=== PATIENT | male | born 1960 | race Caucasian/White ===

== ENCOUNTER 2020-01-18 09:41 | Emergency (ER) | payer SELFPAY ==
--- NOTE | 2020-01-18 11:05 | ER Document Report ---
ED Medical Screen (RME) - General Chief Complaint: Elbow Injury Stated Complaint: RIGHT ELBOW PAIN,SWELLING Time Seen by Provider: 01/18/20 10:58 Mode of Arrival: Ambulatory Information source: Patient Notes: 59-year-old male presented to ED for right elbow pain. He states a month ago he hit his elbow on something it hurt really bad for about a week and then it got better and then started swelling now he has a large right elbow effusion with pain. He states he cannot bend his elbow freely but this is painful. He states he does have a history of kidney cancer with left kidney removed about 20 years ago. He smokes 3/4 pack a day and rarely drinks. - HPI Onset: Other Onset/Duration: Intermittent - Month ago Quality of pain: Sharp Severity: Moderate Pain Level: 3 Associated Symptoms: Other - Right elbow effusion Exacerbated by: Movement Relieved by: Denies Similar symptoms previously: Yes Recently seen / treated by doctor: No - Related Data Smoking: Cigarettes - 3/4 pack/day Frequency of alcohol use: Rare Drug Abuse: None Allergies/Adverse Reactions: No Known Allergies Allergy (Verified 01/18/20 11:00) Past Medical History - General Information source: Patient - Social History Cigarette use (# per day): Yes Frequency of alcohol use: Rare Drug Abuse: None Lives with: Family Family history: Reviewed & Not Pertinent - Past Medical History Cardiac Medical History: Reports: None Pulmonary Medical History: Reports: None EENT Medical History: Reports: None Neurological Medical History: Reports: None Endocrine Medical History: Reports: None Renal/ Medical History: Reports: Other - Kidney cancer Malignancy Medical History: Reports Hx Renal (Kidney) Cancer GI Medical History: Reports: None Musculoskeltal Medical History: Reports None Skin Medical History: Reports None Psychiatric Medical History: Reports: None Traumatic Medical History: Reports: None Infectious Medical History: Reports: None Past Surgical History: Reports: Hx Kidney (Renal Surgery) - Remove left kidney Physical Exam - Vital signs Vitals: Temp Pulse Resp BP Pulse Ox 97.8 F 99 16 112/80 96 01/18/20 09:49 01/18/20 09:49 01/18/20 09:49 01/18/20 09:49 01/18/20 09:49 Course - Vital Signs Vital signs: Temp Pulse Resp BP Pulse Ox 98.1 F 75 17 122/72 98 01/18/20 15:37 01/18/20 15:37 01/18/20 15:37 01/18/20 15:37 01/18/20 15:37 Doctor's Discharge - Discharge Clinical Impression: Olecranon bursitis of right elbow Condition: Stable Disposition: HOME, SELF-CARE Additional Instructions: Bursitis You have been diagnosed as having bursitis. Bursitis is an inflammation of a fluid pouch (bursa) found near joints. This is usually due to repeated minor irritation, or pressure directly on the bursa. On occasion, the bursitis can be due to infection (your doctor has checked for this). Sometimes the doctor decides to remove the fluid from the bursa with a needle. This may be to examine the fluid for infection or to ease the pressure caused by the fluid. The usual treatment is rest, local warmth, (or cold if the bursitis is caused by an acute injury), and antiinflammatory medication. Occasionally, an injection of cortisone is necessary. You should call the doctor for re-examination if the pain increases significantly, or if the area becomes severely swollen and red, or fever develops. The right elbow aspirate fluid was sent to the lab for culture. Meanwhile we have placed you on antibiotics as a preventative and empiric therapy for perhaps a bacterial infection if present. We also placed you on ibuprofen which is anti-inflammatory which would also help decrease to reoccurrence of this fluid. Try your best to not over exert and extend and flex her elbow any more than need be that will help prevent recurrence of this bursitis until things improve. Do follow-up with your primary care physician what is within 1 week. Wear the [place] wrap and the 4 x 4 pad support to apply pressure over this area until you are improved. Prescriptions: Sulfamethoxazole/Trimethoprim [Bactrim Ds Tablet] 1 each PO BID #20 tablet Ibuprofen [Motrin 800 mg Tablet] 800 mg PO Q8H PRN #21 tablet PRN Reason: pain
--- NOTE | 2020-01-18 11:44 | RADIOLOGY REPORT (SQ) ---
EXAM DESCRIPTION: ELBOW RIGHT OVER 2 VIEWS IMAGES COMPLETED DATE/TIME: 01/18/2020 11:28 am REASON FOR STUDY: pain COMPARISON: None. EXAM PARAMETERS: NUMBER OF VIEWS: Four views. TECHNIQUE: AP, lateral and oblique radiographic images acquired of the right elbow. LIMITATIONS: None. FINDINGS: MINERALIZATION: Normal. BONES: No acute fracture or dislocation. Old 4 mm coronoid process avulsion. No worrisome bone lesi ons. JOINTS: No effusion. SOFT TISSUES: Olecranon soft tissue swelling. No radiopaque foreign body. OTHER: No other significant finding. IMPRESSION: NO FRACTURE.Olecranon soft tissue swelling. No radiopaque foreign body. TECHNICAL DOCUMENTATION: JOB ID: [id number] [place]-72 2010 [employer]- All Rights Reserved Reading location - IP/workstation name: [email or web address]
[2020-01-18] MEDS ORDERED: LIDOCAINE 1% INJ-PF (10 MG/ML) 30 ML SDV INJ ONE (13:47)
--- NOTE | 2020-01-18 15:33 | ER Document Report ---
Entered by JAKE SANTIAGO SCRIBE 01/18/20 0805 Acting as scribe for:KIMBERLY LEWIS MD ED Extremity Problem, Upper - General Chief Complaint: Arm Pain Stated Complaint: RIGHT ELBOW PAIN,SWELLING Time Seen by Provider: 01/18/20 10:58 Mode of Arrival: Ambulatory Information source: Patient Notes: This 59 year old male patient presents to the emergency department today with swelling of his right elbow. Patient states he bumped his elbow about x5 weeks ago and there was pain for x2-3 days. Patient states x1.5 weeks ago his right elbow began to swell and there has not been pain. Patient states he is able to move his elbow normally. - Related Data Allergies/Adverse Reactions: No Known Allergies Allergy (Verified 01/18/20 11:00) Past Medical History - General Information source: Patient - Social History Smoking Status: Current Every Day Smoker Cigarette use (# per day): Yes Frequency of alcohol use: Rare Drug Abuse: None Lives with: Alone Family History: Reviewed & Not Pertinent, DM, Other - CHF, CA Patient has homicidal ideation: No Neurological Medical History: Reports: Hx Migraine Renal/ Medical History: Reports: Other - Kidney cancer Malignancy Medical History: Reports Hx Renal (Kidney) Cancer Past Surgical History: Reports: Hx Kidney (Renal Surgery) - Remove left kidney Review of Systems - Review of Systems Constitutional: No symptoms reported EENT: No symptoms reported Cardiovascular: No symptoms reported Respiratory: No symptoms reported Gastrointestinal: No symptoms reported Genitourinary: No symptoms reported Male Genitourinary: No symptoms reported Musculoskeletal: See HPI, Other - R elbow swelling Skin: No symptoms reported Hematologic/Lymphatic: No symptoms reported Neurological/Psychological: No symptoms reported -: Yes All other systems reviewed and negative Physical Exam - Vital signs Vitals: Temp Pulse Resp BP Pulse Ox 97.8 F 99 16 112/80 96 01/18/20 09:49 01/18/20 09:49 01/18/20 09:49 01/18/20 09:49 01/18/20 09:49 - General General appearance: Appears well, Alert - HEENT Head: Normocephalic, Atraumatic Eyes: Normal Pupils: PERRL - Respiratory Respiratory status: No respiratory distress Chest status: Nontender Breath sounds: Normal Chest palpation: Normal - Cardiovascular Rhythm: Regular Heart sounds: Normal auscultation Murmur: No - Abdominal Inspection: Normal Distension: No distension Bowel sounds: Normal Tenderness: Nontender - Extremities General lower extremity: Normal inspection. No: Edema Notes: Olecranon swelling of the posterior right elbow. No tenderness with palpation. Full ROM. Normal temperature of the skin. - Neurological Neuro grossly intact: Yes Cognition: Normal Orientation: AAOx4 Speech: Normal - Psychological Associated symptoms: Normal affect, Normal mood - Skin Skin Temperature: Warm Skin Moisture: Dry Skin Color: Normal Course - Re-evaluation Re-evalutation: 01/18/20 15:26 Patient resting comfortably no signs of distress - Vital Signs Vital signs: Temp Pulse Resp BP Pulse Ox 98.0 F 80 18 121/78 98 01/18/20 13:18 01/18/20 13:18 01/18/20 13:18 01/18/20 13:18 01/18/20 13:18 01/18/20 15:27 Vital signs stable no acute process. - Diagnostic Test Radiology reviewed: Image reviewed, Reports reviewed Radiology results interpreted by me: 01/18/20 15:27 X-ray of elbow shows no acute bony injuries or dislocations soft tissue swelling noted in the olecranon area. Procedures - Joint Aspiration Right Elbow Time completed: 15:00 Consent obtained: Yes Joint aspiration pre-procedure: Sterile PPE donned, Chloraprep applied Anesthetic type: 1% Lidocaine mL's of anesthetic: 2 Needle size: 18 Amount/type of drainage: 12 Number of attempts: 1 Complications: No Discharge - Discharge Clinical Impression: Olecranon bursitis of right elbow Condition: Stable Disposition: HOME, SELF-CARE Additional Instructions: Bursitis You have been diagnosed as having bursitis. Bursitis is an inflammation of a fluid pouch (bursa) found near joints. This is usually due to repeated minor irritation, or pressure directly on the bursa. On occasion, the bursitis can be due to infection (your doctor has checked for this). Sometimes the doctor decides to remove the fluid from the bursa with a needle. This may be to examine the fluid for infection or to ease the pressure caused by the fluid. The usual treatment is rest, local warmth, (or cold if the bursitis is caused by an acute injury), and antiinflammatory medication. Occasionally, an injection of cortisone is necessary. You should call the doctor for re-examination if the pain increases significantly, or if the area becomes severely swollen and red, or fever develops. The right elbow aspirate fluid was sent to the lab for culture. Meanwhile we have placed you on antibiotics as a preventative and empiric therapy for perhaps a bacterial infection if present. We also placed you on ibuprofen which is anti-inflammatory which would also help decrease to reoccurrence of this fluid. Try your best to not over exert and extend and flex her elbow any more than need be that will help prevent recurrence of this bursitis until things improve. Do follow-up with your primary care physician what is within 1 week. Wear the [place] wrap and the 4 x 4 pad support to apply pressure over this area until you are improved. Prescriptions: Sulfamethoxazole/Trimethoprim [Bactrim Ds Tablet] 1 each PO BID #20 tablet Ibuprofen [Motrin 800 mg Tablet] 800 mg PO Q8H PRN #21 tablet PRN Reason: pain I personally performed the services described in the documentation, reviewed and edited the documentation which was dictated to the scribe in my presence, and it accurately records my words and actions.
[2020-01-18 15:41] VITALS: BP 122/72
--- NOTE | 2020-01-18 16:56 | ER Document Report ---
ED Medical Screen (RME) - General Chief Complaint: Arm Pain Stated Complaint: RIGHT ELBOW PAIN,SWELLING Time Seen by Provider: 01/18/20 10:58 Mode of Arrival: Ambulatory Notes: 59-year-old male presented to ED for right elbow pain. He states a month ago he hit his elbow on something it hurt really bad for about a week and then it got better and then started swelling now he has a large right elbow effusion with pain. He states he cannot bend his elbow freely but this is painful. He states he does have a history of kidney cancer with left kidney removed about 20 years ago. He smokes 3/4 pack a day and rarely drinks. I have greeted and performed a rapid initial assessment of this patient. A comprehensive ED assessment and evaluation of the patient, analysis of test results and completion of medical decision making process will be conducted by an additional ED providers. - Related Data Allergies/Adverse Reactions: No Known Allergies Allergy (Verified 01/18/20 11:00) Past Medical History - Social History Cigarette use (# per day): Yes Frequency of alcohol use: Rare Drug Abuse: None Family history: Reviewed & Not Pertinent - Past Medical History Cardiac Medical History: Reports: None Pulmonary Medical History: Reports: None EENT Medical History: Reports: None Neurological Medical History: Reports: None, Hx Migraine Endocrine Medical History: Reports: None Renal/ Medical History: Reports: Other - Kidney cancer Malignancy Medical History: Reports Hx Renal (Kidney) Cancer GI Medical History: Reports: None Musculoskeltal Medical History: Reports None Skin Medical History: Reports None Psychiatric Medical History: Reports: None Traumatic Medical History: Reports: None Infectious Medical History: Reports: None Past Surgical History: Reports: Hx Kidney (Renal Surgery) - Remove left kidney Physical Exam - Vital signs Vitals: Temp Pulse Resp BP Pulse Ox 97.8 F 99 16 112/80 96 01/18/20 09:49 01/18/20 09:49 01/18/20 09:49 01/18/20 09:49 01/18/20 09:49 Course - Vital Signs Vital signs: Temp Pulse Resp BP Pulse Ox 98.1 F 75 17 122/72 98 01/18/20 15:37 01/18/20 15:37 01/18/20 15:37 01/18/20 15:37 01/18/20 15:37 Doctor's Discharge - Discharge Clinical Impression: Olecranon bursitis of right elbow Condition: Stable Disposition: HOME, SELF-CARE Additional Instructions: Bursitis You have been diagnosed as having bursitis. Bursitis is an inflammation of a fluid pouch (bursa) found near joints. This is usually due to repeated minor irritation, or pressure directly on the bursa. On occasion, the bursitis can be due to infection (your doctor has checked for this). Sometimes the doctor decides to remove the fluid from the bursa with a needle. This may be to examine the fluid for infection or to ease the pressure caused by the fluid. The usual treatment is rest, local warmth, (or cold if the bursitis is caused by an acute injury), and antiinflammatory medication. Occasionally, an injection of cortisone is necessary. You should call the doctor for re-examination if the pain increases significantly, or if the area becomes severely swollen and red, or fever develops. The right elbow aspirate fluid was sent to the lab for culture. Meanwhile we have placed you on antibiotics as a preventative and empiric therapy for perhaps a bacterial infection if present. We also placed you on ibuprofen which is anti-inflammatory which would also help decrease to reoccurrence of this fluid. Try your best to not over exert and extend and flex her elbow any more than need be that will help prevent recurrence of this bursitis until things improve. Do follow-up with your primary care physician what is within 1 week. Wear the [place] wrap and the 4 x 4 pad support to apply pressure over this area until you are improved. Prescriptions: Sulfamethoxazole/Trimethoprim [Bactrim Ds Tablet] 1 each PO BID #20 tablet Ibuprofen [Motrin 800 mg Tablet] 800 mg PO Q8H PRN #21 tablet PRN Reason: pain
== END 2020-01-18 15:42 | disposition home or self-care (01) ==
LOC: ER 09:41
DX: M70.21 Olecranon bursitis, right elbow (principal); M25.521 Pain in right elbow; M79.89 Other specified soft tissue disorders; Z85.528 Personal history of other malignant neoplasm of kidney; Z90.5 Acquired absence of kidney
CPT/HCPCS: 99283; 87205; 87070; 87075; 73080; J3490

== ENCOUNTER 2020-02-24 10:02 | Emergency (ER) | payer SELFPAY ==
[2020-02-24 10:31] VITALS: BP 137/83
--- NOTE | 2020-02-24 12:26 | ER Document Report ---
HPI - HPI Patient complains to provider of: Left ear pain Time Seen by Provider: 02/24/20 12:11 Pain Level: 4 Context: 59-year-old male presents to the emergency room complaining of his left ear feeling full and plugged for the past 2 weeks. States he used [id number] earwax removal yesterday woke up with pain this morning. Denies any fever. No trauma or injury. No recent swimming or flying. Does use Q-tips in his ears. Associated Symptoms: None Exacerbated by: Denies Relieved by: Denies Similar symptoms previously: No Recently seen / treated by doctor: No - ROS Systems Reviewed and Negative: Yes All other systems reviewed and negative - CONSTITUTIONAL Constitutional: DENIES: Fever - EENT EENT: REPORTS: Ear Pain - left ear - NEURO Neurology: REPORTS: Headache. DENIES: Weakness, Vision blurred, Dizzinesss / Vertigo - CARDIOVASCULAR Cardiovascular: DENIES: Chest pain - RESPIRATORY Respiratory: DENIES: Trouble Breathing, Coughing Past Medical History - General Information source: Patient - Social History Smoking Status: Current Every Day Smoker Chew tobacco use (# tins/day): No Frequency of alcohol use: Occasional Drug Abuse: None Family History: Reviewed & Not Pertinent, DM, Other - CHF, CA Patient has homicidal ideation: No Neurological Medical History: Reports: Hx Migraine Malignancy Medical History: Reports Hx Renal (Kidney) Cancer Past Surgical History: Reports: Hx Kidney (Renal Surgery) - Remove left kidney Vertical Provider Document - CONSTITUTIONAL Agree With Documented VS: Yes Exam Limitations: No Limitations - INFECTION CONTROL TRAVEL OUTSIDE OF THE [place] IN LAST 30 DAYS: No - HEENT HEENT: Atraumatic, Normocephalic. negative: Pharyngeal Erythema, Tympanic Membrane Red, Tympanic Membrane Bulging Notes: Bilateral cerumen impaction noted. - NECK Neck: Normal Inspection. negative: Lymphadenopathy-Left, Lymphadenopathy-Right - RESPIRATORY Respiratory: Breath Sounds Normal, No Respiratory Distress, Chest Non-Tender - CARDIOVASCULAR Cardiovascular: No Murmur, Bradycardia - MUSCULOSKELETAL/EXTREMETIES Musculoskeletal/Extremeties: FROM - NEURO Level of Consciousness: Awake, Alert, Appropriate Motor/Sensory: No Motor Deficit, No Sensory Deficit - DERM Integumentary: Warm, Dry, No Rash Course - Re-evaluation Re-evalutation: 02/24/20 12:23 After removal of cerumen from left ear outer ear canal is erythematous and swollen. Tympanic membrane intact. Unable to remove cerumen to right ear due to severe impaction. Patient was counseled to continue to use the earwax removal kit as instructed to remove the remaining cerumen from both ears. Eardrops as prescribed. Outpatient follow-up with ENT if not improving in 2 to 3 days. On-call physician was provided. Patient was given strict return to the emergency room guidelines. Return for any new or worsening symptoms. All questions were answered. Patient verbalized understanding and agrees with plan of care. 02/24/20 12:28 - Vital Signs Vital signs: Temp Pulse Resp BP Pulse Ox 98.5 F 57 L 16 137/83 H 98 02/24/20 10:29 02/24/20 10:29 02/24/20 10:29 02/24/20 10:29 02/24/20 10:29 Procedures - Additional Procedures ear irrigation Time performed: 12:21 Notes: 02/24/20 12:21 Able to remove moderate amount of cerumen with a ear curette. After removal of cerumen left outer ear canal with erythema and swelling. Tympanic membrane intact. Patient Tolerated well. Discharge - Discharge Clinical Impression: Impacted cerumen, left ear Left otitis media Qualifiers: Otitis media type: unspecified Qualified Code(s): H66.92 - Otitis media, unspecified, left ear Condition: Stable Disposition: HOME, SELF-CARE Instructions: Cerumen Impaction ([facility]), Otitis Externa ([facility]) Additional Instructions: Do not put Q-tips into your ear. Continue to use the earwax removal kit as discussed. Use eardrops as prescribed. Outpatient follow-up with ENT if not improving in 2 to 3 days. Return to the emergency room for any new or worsening symptoms. Prescriptions: Neomy Sulf/Polymyx B Sulf/Hc [Cortisporin Otic Susp] 5 drop LFT_EAR TID #1 bottle Referrals: NATHALIE BUNCH MD [ACTIVE STAFF] - Follow up as needed
== END 2020-02-24 12:29 | disposition home or self-care (01) ==
LOC: ER 10:02
DX: H66.92 Otitis media, unspecified, left ear (principal); H61.22 Impacted cerumen, left ear
CPT/HCPCS: 99283